=== PATIENT | male | born 1930 | race Caucasian/White ===

== ENCOUNTER 2017-01-21 15:22 | Outpatient (CLI) | payer BC, OTHER ==
[~2017-01-21 15:22] MED LIST: FINA5TAB3 PO
[2017-01-21 16:22] LABS: BASOPHILS % (AUTO) 0.3 % (0.0-2.0); EOSINOPHILS # (AUTO) 0.1 K/uL (0.0-0.7); EOSINOPHILS % (AUTO) 2.5 % (0.0-7.0); HEMATOCRIT 41.3 % (40.0-50.0); LYMPHOCYTES # (AUTO) 1.3 K/uL (0.8-4.8); LYMPHOCYTES % (AUTO) 25.4 % (20.5-51.5); MEAN CORPUSCULAR HEMOGLOBIN 31.6 uug (27.0-31.0); MEAN CORPUSCULAR HGB CONC 34 g/dL (32.0-37.0); MEAN CORPUSCULAR VOLUME 93.3 fL (82.0-92.0); MONOCYTES # (AUTO) 0.8 K/uL (0.1-1.30); MONOCYTES % (AUTO) 15.7 % (0.0-11.0); NEUTROPHILS % (AUTO) 56.1 % (38.5-71.5); PLATELET COUNT (AUTO) 183 K/uL (150-450); RED BLOOD CELL COUNT(AUTO) 4.43 MIL/uL (4.70-6.10); RED CELL DISTRIBUTION WIDTH 12.9 % (11.5-14.5); WHITE BLOOD COUNT (AUTO) 5.2 K/uL (4.0-11.2)
[2017-01-21 16:25] LABS: NEUTROPHILS % (MANUAL) 0 % (42-75)
[2017-01-21 16:26] LABS: ALBUMIN 3.6 g/dL (3.4-5.0); BILIRUBIN,TOTAL 0.5 mg/dL (0.2-1.0); CALCIUM 9.4 mg/dL (8.5-10.1); CREATININE 1.1 mg/dL (0.6-1.3); POTASSIUM 4.2 mmol/L (3.5-5.1); TOTAL PROTEIN, SERUM 7.3 g/dL (6.4-8.2)
[2017-01-21 16:31] LABS: THYROID STIMULATING HORMONE 0.968 mIU/mL (0.358-3.740)
[2017-01-21 16:49] LABS: *BILIRUBIN,URIN NEGATIVE (NEGATIVE); *BLOOD, URINE NEGATIVE (NEGATIVE); *CLARITY,URINE CLEAR (CLEAR); *COLOR,URINE YELLOW (YELLOW); *KETONES,URINE TRACE (NEGATIVE); *PROTEIN,URINE NEGATIVE (NEGATIVE); *UROBILINOGEN,URINE 0.2 E.U./dl (NORMAL); LEUKOCYTE ESTERASE ,URINE NEGATIVE (NEGATIVE); NITRITE, URINE NEGATIVE (NEGATIVE); PH,URINE 5.5 (5.0-8.0); UGLUCOSE NEGATIVE (NEGATIVE)
[2017-01-21 17:28] LABS: BACTERIA,URINE NONE SEEN /HPF (NONE SEEN); RBC,URINE 0-3 /HPF (0-3); SQUAMOUS EPITHELIAL CELL,UR NONE SEEN /HPF (NONE SEEN); WBC,URINE 0-3 /HPF (0-3)
== END 2017-01-21 23:59 | disposition home or self-care (01) ==
LOC: LAB 15:22
PROVIDERS: ATTEND Internal Medicine
DX: Z00.00 Encounter for general adult medical examination without abnormal findings (principal); N40.0 Benign prostatic hyperplasia without lower urinary tract symptoms; R53.83 Other fatigue
CPT/HCPCS: 36415; 84153; 84443; 85025; 87086

== ENCOUNTER 2017-03-04 16:07 | Inpatient (IN) | payer BC, OTHER ==
[~2017-03-04] VITALS: Ht 177.8 cm; Wt 64.0 kg
[2017-03-04] MEDS ORDERED: MIRA50TA PO (16:24)
[2017-03-04] MEDS ORDERED: IV NORMAL SALINE 1000 ML BAG IV ONE (16:30)
[2017-03-04 16:31] LABS: BASOPHILS # (AUTO) 0.1 K/uL (0.0-8.0); BASOPHILS % (AUTO) 1.1 % (0.0-2.0); EOSINOPHILS # (AUTO) 0.3 K/uL (0.0-0.7); EOSINOPHILS % (AUTO) 4.7 % (0.0-7.0); HEMATOCRIT 38.5 % (40-50); HEMOGLOBIN 12.7 G/DL (14.0-18.0); LYMPHOCYTES % (AUTO) 17.1 % (20.5-51.5); MEAN CORPUSCULAR HEMOGLOBIN 30.7 UUG (27.0-31.0); MEAN CORPUSCULAR HGB CONC 33 g/dL (32.0-37.0); MONOCYTES # (AUTO) 0.8 K/UL (0.1-1.30); MONOCYTES % (AUTO) 14.8 % (0.0-11.0); NEUTROPHILS # (AUTO) 3.4 K/UL (1.8-8.9); NEUTROPHILS % (AUTO) 62.3 % (38.5-71.5); PLATELET COUNT (AUTO) 182 K/UL (150-450); RED BLOOD CELL COUNT(AUTO) 4.13 MIL/UL (4.7-6.1); WHITE BLOOD COUNT (AUTO) 5.6 K/UL (4.0-11.2)
[2017-03-04 16:42] LABS: CREATININE 1.2 mg/dL (0.6-1.3)
[2017-03-04 16:49] LABS: BILIRUBIN,DIRECT 0.1 mg/dL (0.0-0.2); BILIRUBIN,TOTAL 0.3 mg/dL (0.2-1.0); TOTAL PROTEIN, SERUM 6.7 g/dL (6.4-8.2)
--- NOTE | 2017-03-04 18:35 | NUR ---
Patient is ready for admission since 1810, pending admission papers@this time
--- NOTE | 2017-03-04 18:56 | NUR ---
still for transfer to 2nd floor, no acute change in condition seen, no diarrhea episodes seen while in ER
--- NOTE | 2017-03-04 19:07 | NUR ---
Hands off report given to ULISES Butcher.
[2017-03-04] MEDS ORDERED: ONDANSETRON 4 MG/2 ML VIAL IV PRN (20:15)
[2017-03-04] MEDS ORDERED: MAGNESIUM HYDROXIDE 30 ML LIQUID UDC PO PRN (20:15)
[2017-03-04] MEDS ORDERED: ZOLPIDEM 5 MG TABLET PO PRN (20:15)
[2017-03-04] MEDS ORDERED: ACETAMINOPHEN 325 MG TABLET PO PRN (20:15)
[2017-03-04] MEDS ORDERED: HYDROCODONE/APAP 5-325MG TABLET PO PRN (20:15)
[2017-03-04] MEDS ORDERED: Z GUARD REMEDY PASTE 57 GM TUBE TOP PRN (20:15)
--- NOTE | 2017-03-04 20:16 | NUR ---
Pt. admitted to med surg , under care of Dr. Cortes, Belongs List completed, no resp distress noted or reported upon assessment... pt transferred via gurney...
[2017-03-04 20:25] VITALS: BP 122/65
--- NOTE | 2017-03-04 21:00 | NUR ---
Admitted patient from ER via [facility] with admitting DX: Dehydration, accompanied by at bedside. AAOX4. Ambulatory with hand held assist. Routine admission care done. Plan of care initiated.
[2017-03-04] MEDS: IV NS 1000 ML 1,000 ML IV SCH (21:39)
[2017-03-05 04:00] VITALS: BP 100/54
[2017-03-05] MEDS: IV NS 1000 ML 1,000 ML IV SCH ×2 (06:09→18:18)
[2017-03-05] MEDS: PANTOPRAZOLE SODIUM 40 MG TABLET.DR PO SCH (06:10)
--- NOTE | 2017-03-05 06:38 | NUR ---
Slept at short interval. Frequent urination noted and recorded output. No complaint presented all night. All needs attended and met. No significant event reported all night. Continue care as planned.
[2017-03-05 06:57] LABS: BASOPHILS % (AUTO) 0.6 % (0.0-2.0); EOSINOPHILS # (AUTO) 0.3 K/uL (0.0-0.7); EOSINOPHILS % (AUTO) 6.1 % (0.0-7.0); HEMATOCRIT 36.9 % (40-50); HEMOGLOBIN 12.4 G/DL (14.0-18.0); LYMPHOCYTES % (AUTO) 17.2 % (20.5-51.5); MEAN CORPUSCULAR HGB CONC 34 g/dL (32.0-37.0); MEAN CORPUSCULAR VOLUME 92.3 FL (82.0-92.0); MONOCYTES # (AUTO) 0.8 K/UL (0.1-1.30); MONOCYTES % (AUTO) 15.2 % (0.0-11.0); NEUTROPHILS # (AUTO) 3.5 K/UL (1.8-8.9); NEUTROPHILS % (AUTO) 60.9 % (38.5-71.5); PLATELET COUNT (AUTO) 167 K/UL (150-450); RED BLOOD CELL COUNT(AUTO) 3.99 MIL/UL (4.7-6.1); WHITE BLOOD COUNT (AUTO) 5.6 K/UL (4.0-11.2)
--- NOTE | 2017-03-05 07:20 | NUR ---
Report given to ULISES Douglas
--- NOTE | 2017-03-05 07:25 | NUR ---
RECEIVED PATIENT FROM [facility], SAFETY CHECK, BED IN LOW POSITION, SIDE RAILS UP X2
[2017-03-05 07:34] LABS: CREATININE 1.1 mg/dL (0.6-1.3); MAGNESIUM 1.6 mg/dL (1.8-2.4); PHOSPHOROUS 2.9 mg/dL (2.5-4.9)
[2017-03-05 08:31] LABS: EOSINOPHILS % (MANUAL) 4 % (0-8); LYMPHOCYTES % (MANUAL) 19 % (20-40); MONOCYTES % (MANUAL) 13 % (2-10); NEUTROPHILS % (MANUAL) 64 % (42-75)
[2017-03-05] MEDS: OXYBUTYNIN CHLORIDE 5 MG TABLET PO SCH ×2 (08:59→20:29)
[2017-03-05] MEDS ORDERED: Medication Not On Formulary EA (Mirabegron (Myrbetriq) 50 MG) PO SCH (09:00)
[2017-03-05 12:00] VITALS: BP 110/53
[2017-03-05] MEDS: MAGNESIUM SULFATE/D5W 100 ML IV SCH ×2 (14:45→15:54)
[2017-03-05 16:08] VITALS: BP 111/54
[2017-03-05 19:00] VITALS: BP 117/61
--- NOTE | 2017-03-05 19:04 | NUR ---
GAVE REPORT TO TOOL ANALYST, PATIENT STABLE NO DISTRESS
[2017-03-05] MEDS ORDERED: GOLYTELY 4000 ML BOTTLE PO ONE (19:15)
--- NOTE | 2017-03-05 19:20 | NUR ---
Received report from ULISES Douglas
--- NOTE | 2017-03-05 20:08 | NUR ---
Up on BSC when received. at bedside. very concern about patient procedure in AM and the bowel prep he'll going through. Patient very needy and depressed. Continue care as planned.
--- NOTE | 2017-03-05 20:20 | NUR ---
Claudia initiated as ordered.
--- NOTE | 2017-03-05 21:35 | NUR ---
Had moderate amount of hard pingpong sized stools at this time. Instructed patient to continue drinking Golytely as ordered till BM becomes clear/watery and no more visible chunks/particles.
--- NOTE | 2017-03-05 22:10 | NUR ---
Had bowel accident, Patient wants everything at the same time while busy giving him a good pericare/partial bath. Explained to patient that I will do it one at a time and to be patient with me because Im cleaning him very thoroughly.
--- NOTE | 2017-03-05 23:06 | NUR ---
Another BM , this time loose with some particles.
--- NOTE | 2017-03-05 23:53 | NUR ---
IV out. Re started IV on left upper arm G# 20 x 1 attempt. Pt tolerated procedure well. Resumed IVF as ordered.
--- NOTE | 2017-03-06 03:00 | NUR ---
NPO initiated as ordered. Pt verbalized understanding.
[2017-03-06 04:00] VITALS: BP 126/69
[2017-03-06] MEDS: IV NS 1000 ML 1,000 ML IV SCH ×3 (04:02→18:07)
[2017-03-06] MEDS: PANTOPRAZOLE SODIUM 40 MG TABLET.DR PO SCH (05:54)
--- NOTE | 2017-03-06 05:55 | NUR ---
Protonix po not given. Pt NPO for EGD and Colonoscopy today.
--- NOTE | 2017-03-06 06:04 | NUR ---
BM watery yellow in color with few tiny particles noted. Good pericare rendered. Kept NPO as ordered. Heat pad on neck for complaint of discomfort. All needs attended and met. No significant event reported all night. Continue care as planned.
[2017-03-06 06:59] LABS: POTASSIUM 3.8 mmol/L (3.5-5.1)
[2017-03-06] MEDS ORDERED: IV LACTATED RINGERS SOLUTION 1,000 ML BAG IV ONE (07:49)
--- NOTE | 2017-03-06 08:00 | NUR ---
awake alert and oriented, kept NPO for EGD/Colonoscopy today- explained plan of care- verbalized understanding, up to BR and had clear liquid bm, denies of pain, on isolation for pending c diff results, call light within reach
--- NOTE | 2017-03-06 08:48 | NUR ---
TO GI LAB PER BED
--- NOTE | 2017-03-06 10:50 | NUR ---
back from GI lab awake lert and oriented, denies of pain, VS taken, will continue to monitor
[2017-03-06 11:03] VITALS: BP 120/62
--- NOTE | 2017-03-06 11:15 | NUR ---
ambulated to BR with standby assistance, voided qs, gave apple juice and some pudding with crackers- tolerated well. now on regular diet
[2017-03-06 11:30] VITALS: BP 124/74
[2017-03-06] MEDS: OXYBUTYNIN CHLORIDE 5 MG TABLET PO SCH ×2 (12:04→20:08)
--- NOTE | 2017-03-06 13:00 | NUR ---
lunch taken and ate 100%, no nausea/vomiting, taking flds well, here visiting
[2017-03-06 15:05] VITALS: BP 99/54
[2017-03-06] MEDS ORDERED: PROPOFOL 200 MG/20 ML BOTTLE IV ONE (15:09)
[2017-03-06] MEDS ORDERED: LIDOCAINE HCL 1% 20 ML VIAL MC ONE (15:09)
--- NOTE | 2017-03-06 16:05 | NUR ---
seen by Dr Dee- spoke to patient and at length
--- NOTE | 2017-03-06 17:20 | NUR ---
Referred by RN as patient concern about weight loss. Diet has been upgraded after procedure. Currently on regular diet. Family at bedside ,states patient is eating two meals per day, encourage pt to eat three healthy balanced meal with healthy snack in between, encourage to drink boost or ensure if his appetite decline. Spoke to the nurse about my recommendation on Boost BID. No diarrhea per RN. Will f/u with weight and PO intake. Addendum: 03/06/17 at [address] Amended: Links added.
--- NOTE | 2017-03-06 18:26 | NUR ---
up and about in the room, isolation d/cd- negative for c diff, tolerated regular diet well, denies of abdominal pain, no n/v, no bleeding noted, all needs attended and met, at bedside, call light within reach
[2017-03-06 20:36] VITALS: BP 102/54
[2017-03-06 21:31] LABS: *BILIRUBIN,URIN NEGATIVE (NEGATIVE); *BLOOD, URINE NEGATIVE (NEGATIVE); *CLARITY,URINE CLEAR (CLEAR); *COLOR,URINE YELLOW (YELLOW); *KETONES,URINE NEGATIVE (NEGATIVE); *PROTEIN,URINE NEGATIVE (NEGATIVE); *UROBILINOGEN,URINE 0.2 E.U./dl (NORMAL); LEUKOCYTE ESTERASE ,URINE NEGATIVE (NEGATIVE); NITRITE, URINE NEGATIVE (NEGATIVE); UGLUCOSE NEGATIVE (NEGATIVE)
[2017-03-06 21:53] LABS: MUCUS,URINE FEW /LPF (0-FEW); WBC,URINE 0-3 /HPF (0-3)
[2017-03-07] MEDS: IV NS 1000 ML 1,000 ML IV SCH ×2 (04:14→07:22)
[2017-03-07 04:21] VITALS: BP 115/75
--- NOTE | 2017-03-07 06:04 | NUR ---
Patient slept intermittently, in no acute distress. Frequently gets out of bed to urinate via urinal and/or to the bathroom. Repeatedly instructed patient to ask for assistance when ambulating for safety but patient independently rolls IV pole with him whenever he goes to the bathroom. Patient is very pleasant, cooperative. IVF running, no infiltration noted. No episodes of diarrhea/loose BM. Call light within reach. Will continue to monitor.
[2017-03-07 06:07] LABS: *ALKALINE PHOSPHOTASE ISOENZYM 82 IU/L (39-117)
[2017-03-07] MEDS: PANTOPRAZOLE SODIUM 40 MG TABLET.DR PO SCH (06:14)
[2017-03-07 06:35] LABS: BASOPHILS % (AUTO) 0.6 % (0.0-2.0); EOSINOPHILS # (AUTO) 0.3 K/uL (0.0-0.7); EOSINOPHILS % (AUTO) 5.2 % (0.0-7.0); HEMOGLOBIN 12.2 G/DL (14.0-18.0); LYMPHOCYTES # (AUTO) 1.2 K/UL (0.8-4.8); LYMPHOCYTES % (AUTO) 24.3 % (20.5-51.5); MEAN CORPUSCULAR HEMOGLOBIN 30.7 UUG (27.0-31.0); MEAN CORPUSCULAR HGB CONC 33 g/dL (32.0-37.0); MEAN CORPUSCULAR VOLUME 92.8 FL (82.0-92.0); MONOCYTES # (AUTO) 0.7 K/UL (0.1-1.30); MONOCYTES % (AUTO) 15.3 % (0.0-11.0); NEUTROPHILS # (AUTO) 2.7 K/UL (1.8-8.9); NEUTROPHILS % (AUTO) 54.6 % (38.5-71.5); PLATELET COUNT (AUTO) 188 K/UL (150-450); RED BLOOD CELL COUNT(AUTO) 3.99 MIL/UL (4.7-6.1); WHITE BLOOD COUNT (AUTO) 4.9 K/UL (4.0-11.2)
[2017-03-07 06:47] LABS: MAGNESIUM 1.9 mg/dL (1.8-2.4); POTASSIUM 3.9 mmol/L (3.5-5.1)
[2017-03-07 07:01] LABS: THYROID STIMULATING HORMONE 1.145 mIU/mL (0.358-3.740)
[2017-03-07 07:20] LABS: BAND % (MANUAL) 2 % (0-10); EOSINOPHILS % (MANUAL) 4 % (0-8); LYMPHOCYTES % (MANUAL) 22 % (20-40); MONOCYTES % (MANUAL) 16 % (2-10); NEUTROPHILS % (MANUAL) 56 % (42-75)
--- NOTE | 2017-03-07 07:22 | NUR ---
IV NS WAS GIVEN 4 HOURS PRIOR
[2017-03-07] MEDS: OXYBUTYNIN CHLORIDE 5 MG TABLET PO SCH (08:42)
[2017-03-07 09:12] LABS: CANCER AG, 125 11.3 U/mL (Not Estab.)
[2017-03-07 11:21] VITALS: BP 103/56
[2017-03-07] MEDS ORDERED: Oxybutynin Chloride PO (14:09)
--- NOTE | 2017-03-07 15:28 | NUR ---
DISCHARGE NOTE: PT IS ALERT AND ORIENTED X2, NO S/S OF RESPIRATORY DISTRESS NOTED. NO PAIN NOTED. ALL SAFETY NEEDS ARE MET. IV/WRISTBAND IS REMOVED. PT LEFT VIA PRIVATE CAR WITH HIS . PT STATES THAT HE DOESN'T FEEL "DIZZY OR WEAK".
[2017-03-08 15:13] LABS: *ALK PHOS ISOENZ BONE 23 % (12-68); *ALKPHOSP ISOENZ. INTESTINAL 0 % (0-18)
[2017-03-08 23:15] LABS: *IMMUNOGLOBULIN G, SERUM 925 mg/dL (700-1600); IMMUNOGLOBULIN A, SERUM 241 mg/dL (61-437); IMMUNOGLOBULIN M, SERUM 56 mg/dL (15-143)
[2017-03-12 09:03] LABS: A/G RATIO 0.9 (0.7-1.7); ALBUMIN 2.7 g/dL (2.9-4.4); ALPHA-1-GLOBULIN 0.2 g/dL (0.0-0.4); ALPHA-2-GLOBULIN 0.9 g/dL (0.4-1.0); BETA GLOBULIN 1.1 g/dL (0.7-1.3); GLOBULIN, TOTAL 3.1 g/dL (2.2-3.9); M-SPIKE Not Observed g/dL (Not Observed)
== END 2017-03-07 15:10 | disposition home or self-care (01) | DRG 392 ==
LOC: ER 16:07 → MED 18:34
PROVIDERS: ADMIT Family Medicine; ATTEND Family Medicine
DX: A08.4 Viral intestinal infection, unspecified (principal); E86.0 Dehydration; Z85.46 Personal history of malignant neoplasm of prostate; Z92.3 Personal history of irradiation; K57.30 Diverticulosis of large intestine without perforation or abscess without bleeding; K64.0 First degree hemorrhoids; D12.0 Benign neoplasm of cecum; M19.90 Unspecified osteoarthritis, unspecified site; H26.9 Unspecified cataract; Z87.891 Personal history of nicotine dependence; N40.0 Benign prostatic hyperplasia without lower urinary tract symptoms; N28.1 Cyst of kidney, acquired; K76.89 Other specified diseases of liver; K29.70 Gastritis, unspecified, without bleeding; D50.9 Iron deficiency anemia, unspecified; I70.90 Unspecified atherosclerosis; R63.4 Abnormal weight loss; R73.9 Hyperglycemia, unspecified
CPT/HCPCS: 36415; 70030-TC; 71010; 82378; 82746; 82784; 83550; 83690; 83735; 84100; 84153; 84155; 84165; 84443; 85025; 85730; 86301; 86334; 86625; 87046; 87086; 87177; 89055; 93005; 97001; A4217; A4663; J3475; J3490; J7030; J7120

== ENCOUNTER 2017-04-26 06:44 | Emergency (ER) | payer BC, OTHER ==
[~2017-04-26] VITALS: Ht 177.8 cm; Wt 57.6 kg
[~2017-04-26 06:44] MED LIST changes: -FINA5TAB3 PO; +MIRA50TA PO; +Oxybutynin Chloride PO
--- NOTE | 2017-04-26 07:04 | NUR ---
Pt to room, changed into gown and placed on monitor. Pt NSR. Pt has multiple complaints. Main complaints of insomnia, wt loss, bruising easily and general weakness. Pt sts he was admitted approx 1 mo ago for same complaints but to cause of symptoms diagnosed. Pt resting in position of comfort for self. Resp even and unlabored. Pt seen by Dr. De for MSE. Awaiting further orders. Report given to ULISES Donald. I relinquish care of pt at this time.
[2017-04-26] MEDS ORDERED: CA C1TAB93 PO (07:05)
[2017-04-26] MEDS ORDERED: FOLI1TAB16 PO (07:05)
[2017-04-26] MEDS ORDERED: GRAP25CA PO (07:05)
[2017-04-26] MEDS ORDERED: MULT1TAB73 PO (07:05)
[2017-04-26 07:32] LABS: BASOPHILS % (AUTO) 0.9 % (0.0-2.0); EOSINOPHILS # (AUTO) 0.1 K/uL (0.0-0.7); EOSINOPHILS % (AUTO) 1.6 % (0.0-7.0); HEMATOCRIT 38.6 % (40-50); HEMOGLOBIN 12.8 G/DL (14.0-18.0); LYMPHOCYTES # (AUTO) 1.2 K/UL (0.8-4.8); LYMPHOCYTES % (AUTO) 23.5 % (20.5-51.5); MEAN CORPUSCULAR HEMOGLOBIN 31.2 UUG (27.0-31.0); MEAN CORPUSCULAR HGB CONC 33 g/dL (32.0-37.0); MEAN CORPUSCULAR VOLUME 93.8 FL (82.0-92.0); MONOCYTES # (AUTO) 0.6 K/UL (0.1-1.30); MONOCYTES % (AUTO) 12.9 % (0.0-11.0); NEUTROPHILS # (AUTO) 3.1 K/UL (1.8-8.9); NEUTROPHILS % (AUTO) 61.1 % (38.5-71.5); PLATELET COUNT (AUTO) 172 K/UL (150-450); RED BLOOD CELL COUNT(AUTO) 4.11 MIL/UL (4.7-6.1)
[2017-04-26 07:33] LABS: CARBON DIOXIDE 32 mmol/L (21-32); CHLORIDE 105 mmol/L (98-107); CREATININE 1.3 mg/dL (0.6-1.3); GLUCOSE 131 mg/dL (74-106); UREA NITROGEN, BLOOD 30 mg/dL (7-18)
[2017-04-26 07:39] LABS: ALANINE AMINOTRANSFERASE 23 U/L (16-63); ALKALINE PHOSPHATASE 74 U/L (50-136); ASPARTATE AMINOTRANSFERASE 17 U/L (15-37); BILIRUBIN,DIRECT 0.1 mg/dL (0.0-0.2); BILIRUBIN,TOTAL 0.4 mg/dL (0.2-1.0)
[2017-04-26 08:09] LABS: *BILIRUBIN,URIN NEGATIVE (NEGATIVE); *BLOOD, URINE NEGATIVE (NEGATIVE); *CLARITY,URINE CLEAR (CLEAR); *COLOR,URINE YELLOW (YELLOW); *KETONES,URINE NEGATIVE (NEGATIVE); *PROTEIN,URINE 1+ (NEGATIVE); *UROBILINOGEN,URINE 0.2 E.U./dl (NORMAL); LEUKOCYTE ESTERASE ,URINE NEGATIVE (NEGATIVE); NITRITE, URINE NEGATIVE (NEGATIVE); UGLUCOSE NEGATIVE (NEGATIVE)
[2017-04-26 08:17] LABS: BACTERIA,URINE NONE SEEN /HPF (NONE SEEN); RBC,URINE NONE SEEN /HPF (0-3); SQUAMOUS EPITHELIAL CELL,UR FEW /HPF (NONE SEEN); WBC,URINE 0-3 /HPF (0-3)
--- NOTE | 2017-04-26 08:27 | NUR ---
PT WAS D/C TO HOME AFTER DR RIVERA EVALUATION. D/C INSTRUCTIONS GIVEN TO THE PT AND TO HIS .
[2017-04-26 08:28] VITALS: BP 121/71
== END 2017-04-26 08:29 | disposition home or self-care (01) ==
LOC: ER 06:47
DX: R53.1 Weakness (principal); M19.90 Unspecified osteoarthritis, unspecified site; Z85.46 Personal history of malignant neoplasm of prostate
CPT/HCPCS: 36415; 71010; 85025; 93005; A4663